=== PATIENT | female | born 1980 | race Caucasian/White ===

== ENCOUNTER → 2020-06-19 10:12 | Outpatient (BNVA) | payer BC, SELFPAY | PROVIDERS: Visit Provider Emergency Medicine | DX: R10.11 Right upper quadrant pain (principal) | CPT/HCPCS: 80053; 83690; 85025 ==

== ENCOUNTER → 2021-03-11 10:59 | Outpatient (BNVA) | payer BC, SELFPAY | PROVIDERS: Visit Provider Emergency Medicine | DX: E86.0 Dehydration (principal); R10.9 Unspecified abdominal pain; Z87.19 Personal history of other diseases of the digestive system | CPT/HCPCS: 80053; 81000; 83690; 85025 ==

== ENCOUNTER → 2021-03-27 14:03 | Outpatient (BNVA) | payer BC, SELFPAY | PROVIDERS: Visit Provider Emergency Medicine | DX: E86.0 Dehydration (principal); R10.9 Unspecified abdominal pain; R74.8 Abnormal levels of other serum enzymes; Z87.19 Personal history of other diseases of the digestive system | CPT/HCPCS: 80074; 82784; 83516 ==

== ENCOUNTER → 2022-11-28 15:03 | Outpatient (BNVA) | payer SELFPAY | PROVIDERS: Visit Provider Nurse Practitioner Family | DX: M25.561 Pain in right knee (principal) | CPT/HCPCS: 73562 ==

== ENCOUNTER → 2023-01-20 09:33 | Outpatient (BNVA) | payer SELFPAY | PROVIDERS: Visit Provider Emergency Medicine | DX: M17.11 Unilateral primary osteoarthritis, right knee (principal); M25.561 Pain in right knee | CPT/HCPCS: 73562; 80053; 80061; 83880; 84443; 85025 ==

== ENCOUNTER 2023-02-15 09:07 | Outpatient (CLI) | payer SELFPAY ==
--- NOTE | 2023-02-15 09:30 | MR_ITS ---
WS: [id number] MRI RIGHT KNEE NONCONTRAST TECHNIQUE: Axial PD, coronal PD fat sat, coronal PD, sagittal PD, and sagittal PD fat-sat images obta ined. CLINICAL INFORMATION: M25.561 - Pain in right knee COMPARISON: None. FINDINGS: Distal quadriceps and patella tendons are intact. Moderate suprapatellar effusion. High-grade avulsio n involving the inferior medial patella cartilage with intra-articular fragment measuring approximate ly 1.7 x 2.2 cm along the medial inferior patella facet. No significant subchondral edema. Slight lat eral subluxation of the patella. Partial tear involving the medial patellar retinaculum adjacent to t he avulsion. Lateral patellar retinaculum appears intact. Recommend correlation for patellar instabil ity. Somewhat shallow trochlear groove. Trace residual edema in the lateral femoral condyle Normal popliteus. Medial and lateral collateral ligaments appear intact. Prepatellar soft tissue margarita a. Medial and lateral meniscus appear intact.. Mild chronic thinning of the medial and lateral menisc us. MR/MR knee RT wo con* [id number] IMPRESSION: 1. Patella chondral avulsion involving the inferior medial patella cartilage w ith intra-articular fragment measuring 1.7 x 2.2 cm described above. 2. Adjacent partial tear of the inferior medial patellar retinaculum. 3. Somewhat shallow trochlear groove. Recommend correlation for patellar insta bility. 4. Slight lateral subluxation of the patella with suggestion of a small amount of residual edema in the lateral femoral condyle. 5. Moderate suprapatellar effusion with prepatellar soft tissue edema. 6. No other acute findings. Outbridge grading: grade IV: full-thickness cartilage loss with underlying bone reactive changes
== END 2023-02-15 09:08 | disposition home or self-care (01) ==
PROVIDERS: Visit Provider Emergency Medicine
DX: S83.011A Lateral subluxation of right patella, initial encounter (principal); X58.XXXA Exposure to other specified factors, initial encounter; M25.561 Pain in right knee; M25.461 Effusion, right knee; R74.8 Abnormal levels of other serum enzymes; I10 Essential (primary) hypertension
CPT/HCPCS: 73721; 80053; 80061; 83880; 84443; 85025

== ENCOUNTER → 2023-03-23 09:34 | Outpatient (BNVA) | payer SELFPAY | PROVIDERS: PCP Nurse Practitioner; Visit Provider Nurse Practitioner | DX: R06.83 Snoring (principal); R53.83 Other fatigue; I10 Essential (primary) hypertension; N92.0 Excessive and frequent menstruation with regular cycle | CPT/HCPCS: 80061 ==

== ENCOUNTER → 2023-08-10 09:22 | Outpatient (BNVA) | payer SELFPAY | PROVIDERS: PCP Nurse Practitioner; Visit Provider Nurse Practitioner | DX: I10 Essential (primary) hypertension (principal) | CPT/HCPCS: 85025 ==

== ENCOUNTER → 2023-08-31 09:06 | Outpatient (BNVA) | payer SELFPAY | PROVIDERS: PCP Nurse Practitioner; Visit Provider Nurse Practitioner | DX: R74.8 Abnormal levels of other serum enzymes (principal) | CPT/HCPCS: 85025 ==